=== PATIENT | female | born 1950 | race Caucasian/White ===

== ENCOUNTER 2016-07-11 14:07 | Emergency (ER) | payer MEDICARE, BC ==
--- NOTE | ~2016-07-11 | US84 ---
[id number] [address] [address] [id number] E MR#: [id number] Acc #: [id number] NAME: CINDY BROOKS : 1950 SEX: F STUDY DATE/TIME: 07/11/2016 14:57 UNIT: SED ROOM: STUDY DESCRIPTION: US LE Veins Complete Gigi Stdy Attending Physician: Asael Gutierrez M.D. Ordering Physician: Asael Gutierrez M.D. Primary Care Physician: Emerson Fernandez M.D. MEDICAL IMAGING REPORT This report is preliminary unless electronic signature is present. EXAM Bilateral lower extremity venous ultrasound HISTORY Bilateral lower extremity swelling, chronic for 2 years. TECHNIQUE Venous ultrasound examination of both lower extremities was performed using grayscale, spectral Doppler and color flow Doppler imaging. FINDINGS The examination is negative. There is no evidence of deep venous thrombus from the groin to the lower calf bilaterally. Visualized greater saphenous veins are also patent. IMPRESSION Negative examination. No evidence of lower extremity DVT. Dictated by... Jaswant Hickman M.D. THIS IS AN ELECTRONICALLY VERIFIED REPORT Jaswant Hickman M.D. at 07/11/2016 11:13 PM ANDREA/dashawn TD: 07/11/2016 22:10 JOB #: [id number] MEDICAL IMAGING REPORT Page 1 of 1
[~2016-07-11 14:07] MED LIST: AMBIEN PO; AUGMENTIN PO; BENZONATATE PO; DARVOCET-N 1001 TAB PO; DIOVAN HCT 160-1 TAB PO; EC-NAPROSYN500 MG PO; LASIX PO; LEXAPRO PO; NAPROXEN PO; ROBAXIN500 MG PO; SYNTHROID PO; VOLTAREN75 MG PO
[2016-07-11] MEDS ORDERED: DIOVAN PO (14:12)
[2016-07-11] MEDS ORDERED: SYNTHROID125 PO (14:12)
[2016-07-11] MEDS ORDERED: SEROQUEL PO (14:13)
[2016-07-11] MEDS ORDERED: ASPIRIN81 MG PO (14:13)
[2016-07-11] MEDS ORDERED: LASIX PO (14:13)
[2016-07-11] MEDS ORDERED: LEXAPRO (14:13)
[2016-07-11] MEDS ORDERED: AMBIEN10 MG (14:14)
== END 2016-07-11 18:22 | disposition home or self-care (01) ==
LOC: SED 14:07
DX: M79.604 Pain in right leg (principal); M79.605 Pain in left leg; I10 Essential (primary) hypertension; Z79.899 Other long term (current) drug therapy
CPT/HCPCS: 93970; 99284

== ENCOUNTER → 2016-07-29 | Outpatient (CLI) | payer MEDICARE, BC ==
[~2016-07-29] MED LIST changes: +AMBIEN10 MG; +ASPIRIN81 MG PO; +DIOVAN PO; +LEXAPRO; +SEROQUEL PO; +SYNTHROID125 PO
--- NOTE | ~2016-07-29 | MR10 ---
[facility] A Service of [facility] & [facility] RADIOLOGY TEXT RESULTS PATIENT: CINDY BROOKS LOCATION: [facility] : 50 UNIT #: [id number] AGE: [address]: Siri Gonzalez SEX: F ORDER DR: [id number] [address] [address] [id number] O MR#: [id number] Acc #: [id number] NAME: CINDY BROOKS : 1950 SEX: F STUDY DATE/TIME: 07/29/2016 12:05 UNIT: [facility] ROOM: STUDY DESCRIPTION: MR Ankle Wo Contrast Lt Attending Physician: Siri Gonzalez P.A.-C. Referring Physician: Siri Gonzalez P.A.-C. Ordering Physician: Siri Gonzalez P.A.-C. Primary Care Physician: Emerson Fernandez M.D. MRI CENTER REPORT This report is preliminary unless electronic signature is present. EXAM MRI of the left ankle without contrast HISTORY 66-year-old female complains of left Achilles area of pain and swelling for 8 months. Clinical concern for tendinopathy or bursitis. COMPARISON Left foot films 04/14/2016 FINDINGS Multiplanar, multiecho imaging was performed of the left ankle utilizing a high field magnet dedicated protocol. Examination demonstrates a prominent fluid collection dorsal to the calcaneal tuberosity and deep to the Achilles tendon compatible with retrocalcaneal bursitis. Mild prominence of the calcaneal tuberosity may reflect a mild Rosas deformity. No significant marrow edema noted within the calcaneus. Small amount of fluid noted in the posterior subtalar joint. Ankle joint unremarkable. Achilles tendon demonstrates minimal tendinopathy involving the distal Achilles tendon but no high-grade tendinopathy or tear. No peritendinitis. Remainder the ankle tendons and ligaments appear normal. Sinus tarsi and tarsal tunnel and plantar fascia unremarkable. Intrinsic foot musculature appears normal. There is marked soft tissue swelling and edema in the lower leg soft tissues but only minimal edema from the ankle into the foot. This is nonspecific but may be related to systemic disease or underlying neurovascular disease. IMPRESSION 1. Mild tendinopathy involving the distal Achilles tendon over about 1.9 cm length. No high-grade tendinopathy or tear. 2. Retrocalcaneal bursitis. 3. Marked soft tissue swelling and edema in the lower leg but only mild edema about the ankle and foot. This is nonspecific and may be STS. [facility] A Service of [facility] RADIOLOGY TEXT RESULTS PATIENT: CINDY BROOKS LOCATION: [facility] : 50 UNIT #: [id number] AGE: [address]: Siri Gonzalez SEX: F ORDER DR: related to systemic disease or underlying neurovascular disease. 1. Dictated by... Natalie More M.D. THIS IS AN ELECTRONICALLY VERIFIED REPORT Natalie More M.D. at 08/01/2016 3:55 PM SALUD/rhonda TD: 08/01/2016 11:57 JOB #: [id number] MRI CENTER REPORT Page 1 of 1
== END | disposition home or self-care (01) ==
LOC: SMRI 11:30
DX: M76.62 Achilles tendinitis, left leg (principal); M71.9 Bursopathy, unspecified; M77.52 Other enthesopathy of left foot and ankle; M79.89 Other specified soft tissue disorders
CPT/HCPCS: 73721